=== PATIENT | male | born 2000 | race Two or more races ===

== ENCOUNTER 2019-09-21 23:17 | Emergency (ER) | payer OTHER ==
[~2019-09-21] VITALS: Ht 175.3 cm; Wt 86.2 kg
--- NOTE | 2019-09-21 23:28 | NUR ---
ED Nurse Note: pt ambulated into ed from home co persistent nosebleed x 1 day. pt states hx of HTN but does not take medications for HTN. Pt also has hx of diabetes. Pt BP 164/94, ERMD aware. ERMD at bedside
[2019-09-21 23:29] VITALS: BP 145/94
[2019-09-21] MEDS ORDERED: Silver Nitrate Stick TOPIC ONE ×2 (23:34→23:45)
--- NOTE | 2019-09-21 23:37 | NUR ---
ED Nurse Note: ermd at bedside, applying silver nitrate stick. pt tolerated well, no adverse reactions, vss.
--- NOTE | 2019-09-21 23:53 | Emergency Room Report ---
History of Present Illness General Chief Complaint: Nosebleed Source: Patient Present Illness [facility] this is a 19 yo male with no pmh who presents with c/o nosebleed. onset around 130 pm this afternoon. localized to right nares. bleeding is intermittently. no trauma. no cough or congestion. no nose picking. better with tissue. Allergies: Coded Allergies: No Known Allergies (Unverified , 09/21/19) COVID-19 Screening Contact w/high risk pt: No Recent Travel to affected area: No Experienced COVID-19 symptoms?: No Patient History Past Medical History: see triage record, old chart reviewed Past Surgical History: none Pertinent Family History: none Social History: Denies: smoking Immunizations: other Reviewed Nursing Documentation: PMH: Agreed; PSxH: Agreed Nursing Documentation-PMH Past Medical History: No Stated History Review of Systems Eye: Denies: eye pain, blurred vision ENT: Denies: ear pain, nose congestion, throat swelling Respiratory: Denies: cough, shortness of breath Cardiovascular: Denies: chest pain, palpitations Gastrointestinal: Denies: abdominal pain, diarrhea, nausea, vomiting Musculoskeletal: Denies: back pain, joint pain Skin: Denies: rash Neurological: Denies: headache, numbness Endocrine: Denies: increased thirst, increased urine Hematologic/Lymphatic: Denies: easy bruising All Other Systems: negative except mentioned in HPI Physical Exam Vital Signs Date Time Temp Pulse Resp B/P (MAP) Pulse Ox O2 Delivery O2 Flow Rate FiO2 09/21/19 23:21 98.4 93 20 145/94 (111) 95 Room Air vitals unremarkable. Sp02 EP Interpretation: reviewed, normal General Appearance: well appearing, no apparent distress, alert Head: normocephalic, atraumatic Eyes: bilateral eye PERRL, bilateral eye EOMI ENT: hearing grossly normal, normal pharynx, other - right nares: hyperemia of right septum. no active bleeding. Neck: full range of motion, supple, no meningismus Respiratory: chest non-tender, lungs clear, normal breath sounds Cardiovascular #1: regular rate, rhythm, no murmur Gastrointestinal: normal bowel sounds, non tender, no mass, no organomegaly, no bruit, non-distended Musculoskeletal: back normal, normal range of motion, gait/station normal Psychiatric: mood/affect normal Procedures Additional Procedure Procedure Narrative Procedure: epitaxis control Indication: epistaxis. Description: I cauterized the septum with silver nitrate. no active bleeding. no complications. pt tolerate procedure without problem. Medical Decision Making Diagnostic Impression: Primary Impression: Epistaxis ER Course pt with mild epistaxis. no e/o htn, active bleeding or posterior bleed. Last Vital Signs Date Time Temp Pulse Resp B/P (MAP) Pulse Ox O2 Delivery O2 Flow Rate FiO2 09/21/19 23:29 98.4 100 20 145/94 95 Room Air Status: improved Disposition: HOME, SELF-CARE Condition: Stable Patient Instructions: Nosebleed Additional Instructions: Follow up with your doctor in 7 days. hold pressure if bleeding. return if worse. Mikhail Ortega MD Sep 21, 2019 23:53
[2019-09-22 00:15] VITALS: BP 140/90
--- NOTE | 2019-09-22 00:15 | NUR ---
ER DISCHARGE NOTE: Patient is cleared to be discharged home per ERMD, pt is aox4, on room air, with stable vital signs. pt was given dc instructions, pt was able to verbalize understanding, pt id band removed. pt is able to ambulate with steady gait. pt took all belongings.
== END 2019-09-22 00:15 | disposition home or self-care (01) ==
LOC: EMR 23:40
DX: R04.0 Epistaxis (principal)
CPT/HCPCS: 30901; Z7502; 99282